=== PATIENT | male | born 1955 | race Caucasian/White ===

== ENCOUNTER 2018-09-11 09:37 | Emergency (ER) | payer BC, OTHER ==
[2018-09-11] MEDS ORDERED: Nitrostat 0.4 MG (ED) SL ONE ×2 (09:58→10:11)
[2018-09-11] MEDS ORDERED: NITRO-BID 2% UD PACKETS TOP ONE (09:58)
[2018-09-11] MEDS ORDERED: Sodium Chloride 0.9% 1000 ML 1,000 ML IV SCH (10:00)
--- NOTE | 2018-09-11 10:05 | ERPHSYRPT ---
- History of Present Illness Time Seen by Provider: 09/11/18 09:50 Historian: patient Exam Limitations: clinical condition Patient Subjective Stated Complaint: pt reports chest pain starting at 0830, states tightness to the center of the chest that radiates to the left arm. reports at that time he felt short of breath and sweaty at that time. pt reports history of heart valve problems. pt reports medication did alleviate some of his pain. Triage Nursing Assessment: pt is aox3, pupils perrl, pt appears in no apparent distress, resps easy and non labored, lung sounds are clear, radial pulses strong and equal, pt is tachy at a rate of 100, cap refill <3 seconds, pt skin pink warm dry. Physician History: PATIENT WITH A HISTORY OF VALVULAR HEART DISEASE COMPLAINS OF ACUTE ONSET OF CHEST PAIN UPON EXERTION ASSOCIATED WITH DYSPNEA AND DIAPHORESIS. STATES PAIN RADIATES TO HIS LEFT ARM, PAIN SCALE 8/10, HE TOOK ASPIRIN BABY ASPIRIN X 4 AND NITROGLYCERIN 0.4MG WITH MINIMAL IMPROVEMENT IN DISCOMFORT. Timing/Duration: today Activities at Onset: activity Quality: tightness Location: substernal Chest Pain Radiation: arm Severity of Pain-Max: moderate Modifying Factors: Improves With: exertion Associated Symptoms: shortness of breath, diaphoresis Prior Chest Pain/Cardiac Workup: cardiac cath Nitro Today/Relief: 0.4 mg x 1, provided at home Aspirin Treatment Today: 81 mg x 4, provided at home Allergies/Adverse Reactions: Sulfa (Sulfonamide Antibiotics) Allergy (Verified 09/11/18 09:57) Home Medications: Avodart 07/05/12 [History] Lexapro 07/05/12 [History] Lortab 7.5-500 Tablet PRN 07/05/12 [History] Lotrel 10-20 mg Capsule 07/05/12 [History] Zocor 07/05/12 [History] Hx Tetanus, Diphtheria Vaccination/Date Given: Yes Hx Influenza Vaccination/Date Given: No Hx Pneumococcal Vaccination/Date Given: No Immunizations Up to Date: Yes - Review of Systems Constitutional: No Fever, No Chills Eyes: No Symptoms Ears, Nose, & Throat: No Symptoms Respiratory: Dyspnea on Exertion (GILLIAM) Cardiac: Chest Pain Abdominal/Gastrointestinal: No Symptoms Genitourinary Symptoms: No Symptoms Musculoskeletal: No Symptoms Skin: No Symptoms Neurological: No Symptoms Psychological: No Symptoms Endocrine: No Symptoms Hematologic/Lymphatic: No Symptoms - Past Medical History Pertinent Past Medical History: Yes Cardiac History: High Cholesterol, Hypertension Psycho-Social History: Depression Other Medical History: heart valve - Past Surgical History Past Surgical History: Yes Gastrointestinal: Appendectomy Other Surgical History: BACK - Social History Smoking Status: Never smoker Exposure to second hand smoke: No Drug Use: none Patient Lives Alone: No - Nursing Vital Signs Nursing Vital Signs: Initial Vital Signs Temperature 98.6 F 09/11/18 09:40 Pulse Rate 100 H 09/11/18 09:40 Respiratory Rate 20 09/11/18 09:40 Blood Pressure 114/79 09/11/18 09:40 O2 Sat by Pulse Oximetry 97 09/11/18 09:40 Pain Scale Pain Intensity 2 - Physical Exam General Appearance: no apparent distress, alert Eye Exam: PERRL/EOMI, eyes nml inspection Ears, Nose, Throat Exam: normal ENT inspection, moist mucous membranes Neck Exam: normal inspection, non-tender, supple, full range of motion Respiratory Exam: normal breath sounds, lungs clear, No respiratory distress Cardiovascular Exam: regular rate/rhythm, normal heart sounds, murmur (GRADE 3/ 6 SYSTOLIC ), tachycardia Gastrointestinal/Abdomen Exam: soft, No tenderness, No mass Back Exam: normal inspection, No CVA tenderness, No vertebral tenderness Extremity Exam: normal inspection, normal range of motion Neurologic Exam: alert, oriented x 3, cooperative, normal mood/affect, sensation nml, No motor deficits Skin Exam: normal color, warm, dry SpO2 Interpretation: normal, borderline oxygenation SpO2: 97 O2 Delivery: Room Air - Radiology Exams Chest X-ray Interpretation: Discussed w/ radiologist, Negative, No Infiltrates Ordered Tests: Active Orders 24 hr Category Date Time Status Masonry Contractor Administrator STAT Care 09/11/18 09:59 Active EKG-ER Only STAT Care 09/11/18 09:58 Active Oxygen-ED Only Nasal Cannula 2 lpm Care 09/11/18 09:58 Active Pulse Oximetry (ED) STAT Care 09/11/18 09:59 Active CHEST 1 VIEW (PORTABLE) Stat Exams 09/11/18 09:58 Completed CBC W DIFF Stat Lab 09/11/18 10:15 Completed CMP Routine Lab 09/11/18 10:15 Completed D-DIMER QUANTITATION Stat Lab 09/11/18 10:15 Completed MAGNESIUM Routine Lab 09/11/18 10:15 Completed NT PRO BNP Routine Lab 09/11/18 10:15 Completed PROTIME WITH INR Stat Lab 09/11/18 10:15 Completed TROPONIN Q3H Lab 09/11/18 10:15 Completed TROPONIN Q3H Lab 09/11/18 13:45 Completed TROPONIN Q3H Lab 09/11/18 16:00 Ordered TROPONIN Q3H Lab 09/11/18 19:00 Ordered TROPONIN Q3H Lab 09/11/18 22:00 Ordered EKG STAT RT 09/11/18 14:35 Active Medication Summary Generic Name Dose Route Start Last Admin Trade Name Freq PRN Reason Stop Dose Admin Sodium Chloride 1,000 mls @ 100 mls/hr 09/11/18 10:00 09/11/18 10:14 Sodium Chloride 0.9% 1000 Ml IV 10/11/18 09:59 100 mls/hr .Q10H WILLIAM Administration Nitroglycerin/Dextrose 250 mls @ 1.5 mls/hr 09/11/18 11:16 09/11/18 11:30 Ntg 0.2mg/Ml In D5w Glass IV 10/11/18 11:15 5 mcg/min .Q24H PRN 1.5 mls/hr CHEST PAIN Administration Protocol 5 MCG/MIN Discontinued Medications Generic Name Dose Route Start Last Admin Trade Name Freq PRN Reason Stop Dose Admin Enoxaparin Sodium 80 mg 09/11/18 10:55 09/11/18 11:04 Enoxaparin Sodium SQ 09/11/18 10:56 80 mg STAT ONE Administration Enoxaparin Sodium Confirm 09/11/18 10:58 Enoxaparin Sodium Administered 09/11/18 10:59 Dose 80 mg SQ .STK-MED ONE Morphine Sulfate 4 mg 09/11/18 10:58 09/11/18 11:03 Morphine Sulfate 4 Mg Inj IV 09/11/18 10:59 4 mg STAT ONE Administration Morphine Sulfate Confirm 09/11/18 10:58 Morphine Sulfate 4 Mg Inj Administered 09/11/18 10:59 Dose 4 mg .ROUTE .STK-MED ONE Nitroglycerin 0.4 mg 09/11/18 09:58 09/11/18 10:13 Nitrostat 0.4 Mg (Ed) SL 09/11/18 09:59 0.4 mg STAT ONE Administration Nitroglycerin 1 gm 09/11/18 09:58 09/11/18 10:13 Nitro-Bid 2% Ud Packets TOP 09/11/18 09:59 1 gm STAT ONE Administration Nitroglycerin Confirm 09/11/18 10:11 Nitro-Bid 2% Ud Packets Administered 09/11/18 10:12 Dose 1 gm .ROUTE .STK-MED ONE Nitroglycerin Confirm 09/11/18 10:11 Nitrostat 0.4 Mg (Ed) Administered 09/11/18 10:12 Dose 0.4 mg SL .STK-MED ONE Lab/Rad Data: Laboratory Result Diagrams 09/11/18 10:15 09/11/18 10:15 Laboratory Results 09/11/18 09/11/18 09/11/18 Range/Units 13:45 10:15 10:15 WBC (4.0-10.5) K/mm3 RBC (4.1-5.6) M/mm3 Hgb (12.5-18.0) gm/dl Hct (42-50) % MCV (78-100) fl MCH (26-32) pg MCHC (32-36) g/dl RDW (11.5-14.0) % Plt Count (150-450) K/mm3 MPV (6-9.5) fl Gran % (36.0-66.0) % Eos # (Auto) (0-0.5) Absolute Lymphs (auto) (1.0-4.6) Absolute Monos (auto) (0.0-1.3) Lymphocytes % (24.0-44.0) % Monocytes % (0.0-12.0) % Eosinophils % (0.00-5.0) % Basophils % (0.0-0.4) % Absolute Granulocytes (1.4-6.9) Basophils # (0-0.4) PT 12.7 (8.83-12.87) SECONDS INR 1.09 (0.8-3.0) D-Dimer 553 H* (215-500) ng/mL Sodium 140 (137-145) mmol/L Potassium 4.2 (3.5-5.1) mmol/L Chloride 103 (98-107) mmol/L Carbon Dioxide 27 (22-30) mmol/L Anion Gap 14.4 (5-15) MEQ/L BUN 17 (9-20) mg/dL Creatinine 0.87 (0.66-1.25) mg/dL Estimated GFR > 60.0 ML/MIN Glucose 121 H (74-106) mg/dL Calcium 9.1 (8.4-10.2) mg/dL Magnesium 1.9 (1.6-2.3) mg/dL Total Bilirubin 0.40 (0.2-1.3) mg/dL AST 26 (17-59) U/L ALT 44 (0-50) U/L Alkaline Phosphatase 117 (38-126) U/L Troponin I 0.409 H* 0.085 H* (0.000-0.034) ng/mL NT-Pro-B Natriuret Pep 333 (0-900) pg/mL Serum Total Protein 7.4 (6.3-8.2) g/dL Albumin 4.4 (3.5-5.0) g/dL 09/11/18 Range/Units 10:15 WBC 7.7 (4.0-10.5) K/mm3 RBC 4.80 (4.1-5.6) M/mm3 Hgb 14.7 (12.5-18.0) gm/dl Hct 44.0 (42-50) % MCV 91.7 (78-100) fl MCH 30.6 (26-32) pg MCHC 33.4 (32-36) g/dl RDW 13.3 (11.5-14.0) % Plt Count 215 (150-450) K/mm3 MPV 10.3 H (6-9.5) fl Gran % 78.9 H (36.0-66.0) % Eos # (Auto) 0.09 (0-0.5) Absolute Lymphs (auto) 1.00 (1.0-4.6) Absolute Monos (auto) 0.50 (0.0-1.3) Lymphocytes % 13.0 L (24.0-44.0) % Monocytes % 6.5 (0.0-12.0) % Eosinophils % 1.2 (0.00-5.0) % Basophils % 0.4 (0.0-0.4) % Absolute Granulocytes 6.07 (1.4-6.9) Basophils # 0.03 (0-0.4) PT (8.83-12.87) SECONDS INR (0.8-3.0) D-Dimer (215-500) ng/mL Sodium (137-145) mmol/L Potassium (3.5-5.1) mmol/L Chloride (98-107) mmol/L Carbon Dioxide (22-30) mmol/L Anion Gap (5-15) MEQ/L BUN (9-20) mg/dL Creatinine (0.66-1.25) mg/dL Estimated GFR ML/MIN Glucose (74-106) mg/dL Calcium (8.4-10.2) mg/dL Magnesium (1.6-2.3) mg/dL Total Bilirubin (0.2-1.3) mg/dL AST (17-59) U/L ALT (0-50) U/L Alkaline Phosphatase (38-126) U/L Troponin I (0.000-0.034) ng/mL NT-Pro-B Natriuret Pep (0-900) pg/mL Serum Total Protein (6.3-8.2) g/dL Albumin (3.5-5.0) g/dL - Progress Progress Note: 09/11/18 11:02 ADMINISTEREDIV NORMAL SALINE 100ML/HR, NTG 0.4MG SL, NITROPASTE 1" ACW, LOVENOX 80MG SUBQ, MORPHINE 4MG IV 09/11/18 15:16, DISCONTNUE NITROPASTE AND TITRATED NITROGLYCERIN INFUSION 5- 10MCG/MIN Discussed with Dr.: Other (DISCUSSED WITH TORREY SHANKS WATER OPERATOR AT [facility] AT 1500 ACCEPTS TRANSFER TO THERE EMERGENCY ROOM) - Departure Time of Disposition: 15:50 Departure Disposition: Transfer Clinical Impression: ACUTE CHEST PAIN, ELEVATED TROPONIN Condition: Stable Critical Care Time: Yes Critical Care Time(excluding separately billable procedures): ___ minutes (60) Referrals: MACARIO CALHOUN [Primary Care Provider] -
[2018-09-11] MEDS ORDERED: Sodium Chloride 0.9% 1000 ML 1,000 ML ONE (10:11)
[2018-09-11] MEDS ORDERED: NITRO-BID 2% UD PACKETS ONE (10:11)
--- NOTE | 2018-09-11 10:13 | XRAY ---
Indication: Chest pain. Comparison: May 05, 2013. Portable apical lordotic chest again demonstrates normal heart and lungs. Bony thorax intact again with mild degenerative changes. No new/acute findings.
[2018-09-11 10:46] LABS: BASOPHIL % 0.4 % (0.0-0.4); Basophil (Absolute #) 0.03 (0-0.4); Eosinophil % 1.2 % (0.00-5.0); Eosinophil (Absolute #) 0.09 (0-0.5); Granulocyte Absolute (ANC) 6.07 (1.4-6.9); Granulocytes % 78.9 % (36.0-66.0); Hemoglobin 14.7 gm/dl (12.5-18.0); Mean Cell Volume 91.7 fl (78-100); Mean Corpuscular Hemoglobin 30.6 pg (26-32); Mean Corpuscular Hgb Concent. 33.4 g/dl (32-36); Mean Platelet Volume 10.3 fl (6-9.5); Monocytes % 6.5 % (0.0-12.0); Platelet Count 215 K/mm3 (150-450); Red Cell Distribution Width 13.3 % (11.5-14.0); White Blood Count 7.7 K/mm3 (4.0-10.5)
[2018-09-11 10:50] LABS: ALBUMIN 4.4 g/dL (3.5-5.0); ALKALINE PHOSPHATASE 117 U/L (38-126); ANION GAP 14.4 MEQ/L (5-15); BLOOD UREA NITROGEN 17 mg/dL (9-20); CHLORIDE 103 mmol/L (98-107); Calcium 9.1 mg/dL (8.4-10.2); Carbon Dioxide 27 mmol/L (22-30); Creatinine 1 0.87 mg/dL (0.66-1.25); Glucose 121 mg/dL (74-106); MAGNESIUM 1.9 mg/dL (1.6-2.3); NT PRO BNP 333 pg/mL (0-900); Potassium 4.2 mmol/L (3.5-5.1); SGOT/AST 26 U/L (17-59); SGPT/ALT 44 U/L (0-50); SODIUM 140 mmol/L (137-145); Total Protein 7.4 g/dL (6.3-8.2)
[2018-09-11 10:51] LABS: INR 1.09 (0.8-3.0); PROTIME 12.7 SECONDS (8.83-12.87)
[2018-09-11 10:53] LABS: TROPONIN 0.085 ng/mL (0.000-0.034)
[2018-09-11] MEDS ORDERED: ENOXAPARIN SODIUM SQ ONE ×2 (10:55→10:58)
[2018-09-11] MEDS ORDERED: MORPHINE SULFATE 4 MG INJ IV ONE (10:58)
[2018-09-11] MEDS ORDERED: MORPHINE SULFATE 4 MG INJ ONE (10:58)
[2018-09-11] MEDS ORDERED: Ntg 0.2MG/Ml in D5W GLASS*** 250 ML IV PRN (11:16)
[2018-09-11] MEDS ORDERED: Ntg 0.2MG/Ml in D5W GLASS*** 250 ML IV ONE (11:18)
[2018-09-11 12:57] VITALS: O2SAT 97
[2018-09-11 15:59] VITALS: BP 131/76; PULSE 88
== END 2018-09-11 15:56 | disposition short-term general hospital (02) ==
LOC: ED 09:37
DX: R07.89 Other chest pain (principal); R74.8 Abnormal levels of other serum enzymes; I10 Essential (primary) hypertension; E78.00 Pure hypercholesterolemia, unspecified
CPT/HCPCS: 36000; 36415; 71045; 80053; 83735; 83880; 84484; 85025; 85379; 85610; 93005; 93041; 96360; 96361; 96372; 96374; 99285; J1650; J2270; A9270-GY

== ENCOUNTER 2018-09-26 17:57 | Emergency (ER) | payer OTHER ==
[2018-09-26 19:03] LABS: Granulocyte Absolute (ANC) 7.58 (1.4-6.9); Hematocrit 36.4 % (42-50); Hemoglobin 11.9 gm/dl (12.5-18.0); Mean Cell Volume 94.1 fl (78-100); Mean Corpuscular Hemoglobin 30.7 pg (26-32); Mean Corpuscular Hgb Concent. 32.7 g/dl (32-36); Mean Platelet Volume 9.6 fl (6-9.5); Platelet Count 331 K/mm3 (150-450); Red Blood Count 3.87 M/mm3 (4.1-5.6); Red Cell Distribution Width 13.3 % (11.5-14.0); White Blood Count 10.3 K/mm3 (4.0-10.5)
[2018-09-26] MEDS ORDERED: Zofran 4 MG/2 ML VIAL ONE (19:06)
[2018-09-26] MEDS ORDERED: MORPHINE SULFATE 4 MG INJ ONE (19:06)
--- NOTE | 2018-09-26 19:06 | ERPHSYRPT ---
- History of Present Illness Time Seen by Provider: 09/26/18 18:10 Historian: patient Exam Limitations: clinical condition Patient Subjective Stated Complaint: medial chest pain that radiates to the right chest, shoulder, back, and a little down the arm Triage Nursing Assessment: Pt arrives at the ER by EMS due to c/o of chest pain , pt is 12 days post valve replacement surgery, unsure which valve, he feels like he woke up with mild pain but didn't think much about it until it got worse later on today, vitals wnl, S1-S2 sounds heard, pulses normal, denies over exerting self, surgery done at [facility] Physician History: PATIENT WITH A HISTORY OF HYPERTENSION, 12 DAYS POSTOPERATIVE CARDIAC VALVE REPLACEMENT AT [facility], COMPLAINS OF ACUTE ONSET OF CHEST PAIN, PRESSURE DISCOMFORT AT 2PM TODAY, CONSTANT, PAIN SCALE 6/10. HAS RADIATION OF PAIN TO HIS BACK, TOOK 4 BABY ASPIRIN AT HOME TODAY. RECEIVED NITROGLYCERIN 0.4MG SUBLINGUAL X 2 DAYS WITH EMS ENROUTE TO EMERGENCY ROOM. DENIES DYSPNEA, DIAPHORESIS AND PALPITATIONS. Timing/Duration: today Activities at Onset: none Quality: pressure Location: substernal Chest Pain Radiation: back Severity of Pain-Max: moderate Modifying Factors: Improves With: nothing Associated Symptoms: shortness of breath Prior Chest Pain/Cardiac Workup: recent hospitalization (CARDIAC VALVE REPLACEMENT 12 DAYS AGO) Nitro Today/Relief: 0.4 mg x 2, provided by EMS Aspirin Treatment Today: no aspirin today, 81 mg x 4, provided at home Allergies/Adverse Reactions: Sulfa (Sulfonamide Antibiotics) Allergy (Verified 09/26/18 18:15) Home Medications: Alprazolam 0.5 mg [xanAX 0.5 MG] 0.5 - 1 tab PO BID 09/26/18 [History] Dutasteride 1 cap PO DAILY 09/26/18 [History] Escitalopram Oxalate 10 mg [Lexapro 10 MG] 10 mg PO DAILY 09/26/18 [History] Metoprolol Tartrate 25 mg [Lopressor 25MG Tab] 25 mg PO BID 09/26/18 [ History] Simvastatin 20Mg [Zocor 20Mg] 40 mg PO DAILY 09/26/18 [History] Hx Tetanus, Diphtheria Vaccination/Date Given: Yes Hx Influenza Vaccination/Date Given: No Hx Pneumococcal Vaccination/Date Given: No - Review of Systems Constitutional: No Fever, No Chills Eyes: No Symptoms Ears, Nose, & Throat: No Symptoms Respiratory: No Symptoms, No Cough, No Dyspnea Cardiac: No Symptoms, Chest Pain, No Edema, No Syncope Abdominal/Gastrointestinal: No Symptoms, No Abdominal Pain, No Nausea, No Vomiting, No Diarrhea Genitourinary Symptoms: No Symptoms, No Dysuria Musculoskeletal: No Symptoms, No Back Pain, No Neck Pain Skin: No Symptoms, No Rash Neurological: No Dizziness, No Focal Weakness, No Sensory Changes Psychological: No Symptoms Endocrine: No Symptoms All Other Systems: Reviewed and Negative - Past Medical History Pertinent Past Medical History: Yes Cardiac History: High Cholesterol, Hypertension Psycho-Social History: Depression Other Medical History: heart valve - Past Surgical History Past Surgical History: Yes Cardiac: Valve Replacement Gastrointestinal: Appendectomy Other Surgical History: BACK - Social History Smoking Status: Never smoker Exposure to second hand smoke: No Drug Use: none Patient Lives Alone: No - Nursing Vital Signs Nursing Vital Signs: Initial Vital Signs Temperature 99.5 F 09/26/18 17:58 Pulse Rate 83 09/26/18 17:58 Respiratory Rate 21 09/26/18 17:58 Blood Pressure 137/76 09/26/18 17:58 O2 Sat by Pulse Oximetry 93 L 09/26/18 17:58 Pain Scale Pain Intensity 5 - Physical Exam General Appearance: no apparent distress, alert Eye Exam: PERRL/EOMI, eyes nml inspection Ears, Nose, Throat Exam: normal ENT inspection, moist mucous membranes Neck Exam: normal inspection, non-tender, supple, full range of motion Respiratory Exam: normal breath sounds, lungs clear, No respiratory distress Cardiovascular Exam: regular rate/rhythm, normal heart sounds, other (WELL HEALED PROXIMAL STERNAL INCISIONAL WOUND,EDGES APPROXIMATED, NO ERYTHEMA OF EDGES) Gastrointestinal/Abdomen Exam: soft, normal bowel sounds, No tenderness, No mass Back Exam: normal inspection, No CVA tenderness, No vertebral tenderness Extremity Exam: normal inspection, normal range of motion Neurologic Exam: alert, oriented x 3, cooperative, normal mood/affect, sensation nml, No motor deficits Skin Exam: normal color, warm, dry SpO2 Interpretation: borderline oxygenation SpO2: 93 O2 Delivery: Room Air - Course EKG Interpreted by Me: RATE, NORMAL AXIS, Non-specific ST Changes (RATE 82) - Radiology Exams Chest X-ray Interpretation: Interpreted by me (MILD CARDIOMEGALY, ELEVATION RIGHT HEMIDIAPHRAM, PREVIOUS STERNOTOMY, NO EVIDENCE OF INFILTRATES OR CONGESTIVE HEART FAILURE) - CT Exams Chest CT Interpretation: Discussed w/radiologist (NEGATIVE FOR PULMONARY EMBOLISM, CARDIOMEGALY, AORTIC VALVE REPLACEMENT, BILATERAL DEPENDENT ATELECTASIS, REMAINING CHEST NEGATIVE) Ordered Tests: Active Orders 24 hr Category Date Time Status Hand Compositor STAT Care 09/26/18 18:17 Active EKG-ER Only STAT Care 09/26/18 18:16 Active EKG-ER Only STAT Care 09/26/18 20:07 Active IV Insertion STAT Care 09/26/18 18:17 Active IV Insertion-2nd Peripheral STAT Care 09/26/18 18:17 Active Oxygen-ED Only Nasal Cannula 2 lpm Care 09/26/18 18:47 Active CHEST 1 VIEW (PORTABLE) Stat Exams 09/26/18 18:47 Taken CHEST WITH CONTRAST [CT] Stat Exams 09/26/18 19:36 Taken CBC W DIFF Stat Lab 09/26/18 18:56 Completed CMP Stat Lab 09/26/18 18:56 Completed D-DIMER QUANTITATION Stat Lab 09/26/18 18:56 Completed MAGNESIUM Stat Lab 09/26/18 18:56 Completed Manual Differential NC Stat Lab 09/26/18 18:56 Completed NT PRO BNP Stat Lab 09/26/18 18:56 Completed PROTIME WITH INR Stat Lab 09/26/18 18:56 Completed TROPONIN Q3H Lab 09/26/18 18:56 Completed TROPONIN Q3H Lab 09/26/18 22:28 Completed TROPONIN Q3H Lab 09/27/18 01:00 Ordered TROPONIN Q3H Lab 09/27/18 04:00 Ordered TROPONIN Q3H Lab 09/27/18 07:00 Ordered Medication Summary Generic Name Dose Route Start Last Admin Trade Name Freq PRN Reason Stop Dose Admin Sodium Chloride 1,000 mls @ 50 mls/hr 09/26/18 19:00 09/26/18 19:13 Sodium Chloride 0.9% 1000 Ml IV 10/26/18 18:59 50 mls/hr .Q20H WILLIAM Administration Nitroglycerin/Dextrose 250 mls @ 1.5 mls/hr 09/26/18 20:05 09/26/18 22:35 Ntg 0.2mg/Ml In D5w Glass IV 10/26/18 20:04 0 mcg/min .Q24H PRN 0 mls/hr CHEST PAIN Titration Protocol 5 MCG/MIN Discontinued Medications Generic Name Dose Route Start Last Admin Trade Name Won PRN Reason Stop Dose Admin Morphine Sulfate 4 mg 09/26/18 18:47 09/26/18 19:14 Morphine Sulfate 4 Mg Inj IV 09/26/18 18:48 4 mg STAT ONE Administration Morphine Sulfate Confirm 09/26/18 19:06 Morphine Sulfate 4 Mg Inj Administered 09/26/18 19:07 Dose 4 mg .ROUTE .STK-MED ONE Morphine Sulfate 6 mg 09/26/18 21:10 09/26/18 21:18 Morphine Sulfate 10 Mg/Ml IV 09/26/18 21:11 6 mg STAT ONE Administration Morphine Sulfate Confirm 09/26/18 21:12 Morphine Sulfate 10 Mg/Ml Administered 09/26/18 21:13 Dose 10 mg .ROUTE .STK-MED ONE Ondansetron HCl 4 mg 09/26/18 18:57 09/26/18 19:13 Zofran 4 Mg/2 Ml Vial IV 09/26/18 18:58 4 mg STAT ONE Administration Ondansetron HCl Confirm 09/26/18 19:06 Zofran 4 Mg/2 Ml Vial Administered 09/26/18 19:07 Dose 4 mg .ROUTE .STK-MED ONE Lab/Rad Data: Laboratory Result Diagrams 09/26/18 18:56 09/26/18 18:56 Laboratory Results 09/26/18 09/26/18 09/26/18 Range/Units 22:28 18:56 18:56 WBC (4.0-10.5) K/mm3 RBC (4.1-5.6) M/mm3 Hgb (12.5-18.0) gm/dl Hct (42-50) % MCV (78-100) fl MCH (26-32) pg MCHC (32-36) g/dl RDW (11.5-14.0) % Plt Count (150-450) K/mm3 MPV (6-9.5) fl Absolute Granulocytes (1.4-6.9) Segmented Neutrophils (36.-66.) % Lymphocytes (Manual) (24-44) % Monocytes (Manual) (0.0-12.0) % Eosinophils (Manual) (0.00-3.0) % Basophils (Manual) (0.0-1.0) % Atypical Lymphocytes % Hypochromia Platelet Estimate (NORMAL) RBC Morphology Polychromasia PT 12.9 H (8.83-12.87) SECONDS INR 1.11 (0.8-3.0) D-Dimer 3592 H* (215-500) ng/mL Sodium (137-145) mmol/L Potassium (3.5-5.1) mmol/L Chloride (98-107) mmol/L Carbon Dioxide (22-30) mmol/L Anion Gap (5-15) MEQ/L BUN (9-20) mg/dL Creatinine (0.66-1.25) mg/dL Estimated GFR ML/MIN Glucose (74-106) mg/dL Calcium (8.4-10.2) mg/dL Magnesium (1.6-2.3) mg/dL Total Bilirubin (0.2-1.3) mg/dL AST (17-59) U/L ALT (0-50) U/L Alkaline Phosphatase (38-126) U/L Troponin I 0.037 H* 0.035 H (0.000-0.034) ng/mL NT-Pro-B Natriuret Pep (0-900) pg/mL Serum Total Protein (6.3-8.2) g/dL Albumin (3.5-5.0) g/dL 09/26/18 09/26/18 Range/Units 18:56 18:56 WBC 10.3 (4.0-10.5) K/mm3 RBC 3.87 L (4.1-5.6) M/mm3 Hgb 11.9 L (12.5-18.0) gm/dl Hct 36.4 L (42-50) % MCV 94.1 (78-100) fl MCH 30.7 (26-32) pg MCHC 32.7 (32-36) g/dl RDW 13.3 (11.5-14.0) % Plt Count 331 (150-450) K/mm3 MPV 9.6 H (6-9.5) fl Absolute Granulocytes 7.58 H (1.4-6.9) Segmented Neutrophils 72 H (36.-66.) % Lymphocytes (Manual) 12 L (24-44) % Monocytes (Manual) 6 (0.0-12.0) % Eosinophils (Manual) 3 (0.00-3.0) % Basophils (Manual) 1 (0.0-1.0) % Atypical Lymphocytes 6 % Hypochromia 1+ Platelet Estimate NORMAL (NORMAL) RBC Morphology ABNORMAL Polychromasia 1+ PT (8.83-12.87) SECONDS INR (0.8-3.0) D-Dimer (215-500) ng/mL Sodium 141 (137-145) mmol/L Potassium 4.2 (3.5-5.1) mmol/L Chloride 105 (98-107) mmol/L Carbon Dioxide 27 (22-30) mmol/L Anion Gap 13.1 (5-15) MEQ/L BUN 15 (9-20) mg/dL Creatinine 0.68 (0.66-1.25) mg/dL Estimated GFR > 60.0 ML/MIN Glucose 95 (74-106) mg/dL Calcium 8.8 (8.4-10.2) mg/dL Magnesium 2.0 (1.6-2.3) mg/dL Total Bilirubin 0.20 (0.2-1.3) mg/dL AST 61 H (17-59) U/L ALT 113 H (0-50) U/L Alkaline Phosphatase 185 H (38-126) U/L Troponin I (0.000-0.034) ng/mL NT-Pro-B Natriuret Pep 695 (0-900) pg/mL Serum Total Protein 6.5 (6.3-8.2) g/dL Albumin 3.4 L (3.5-5.0) g/dL - Progress Progress: re-examined Progress Note: 09/26/18 19:09 ADMINISTERED IV NORMAL SALINE 50ML/HR, ZOFRAN 4MG AND MORPHINE 4MG, APPLICATION NITROPASTE 1" ANTERIOR CHEST WALL. 09/26/18 22:59, PLACED ON INTRAVENOUS NITROGLYCERIN WITH MINIMAL CHANGE IN CHEST PAIN, IMPROVEMENT WITH IV MORPHINE 6MG. DISCUSSED WITH CARDIOVASCULAR SURGEON DR VILLANUEVA AT 2220 ACCEPTS TRANSFER TO [facility]IA [facility]. DR VILLANUEVA STATES PATIENT HAS NORMAL CORONARY ARTERIES, NORMAL CARDIAC CATH PRIOR TO VALVE PLACEMENT. NITROGLYCERIN INFUSION DISCONTINUED. - Departure Departure Disposition: Transfer Clinical Impression: ACUTE CHEST PAIN Condition: Stable Critical Care Time: No Referrals: MACARIO CALHOUN [Primary Care Provider] -
[2018-09-26] MEDS ORDERED: Sodium Chloride 0.9% 1000 ML 1,000 ML ONE (19:07)
[2018-09-26] MEDS: Zofran 4 MG/2 ML VIAL IV ONE (19:13)
[2018-09-26] MEDS: Sodium Chloride 0.9% 1000 ML 1,000 ML IV SCH (19:13)
[2018-09-26 19:14] LABS: INR 1.11 (0.8-3.0); PROTIME 12.9 SECONDS (8.83-12.87)
[2018-09-26] MEDS: MORPHINE SULFATE 4 MG INJ IV ONE (19:14)
[2018-09-26 19:25] LABS: ALBUMIN 3.4 g/dL (3.5-5.0); ALKALINE PHOSPHATASE 185 U/L (38-126); ANION GAP 13.1 MEQ/L (5-15); BLOOD UREA NITROGEN 15 mg/dL (9-20); CHLORIDE 105 mmol/L (98-107); Calcium 8.8 mg/dL (8.4-10.2); Carbon Dioxide 27 mmol/L (22-30); Creatinine 1 0.68 mg/dL (0.66-1.25); Glucose 95 mg/dL (74-106); NT PRO BNP 695 pg/mL (0-900); Potassium 4.2 mmol/L (3.5-5.1); SGOT/AST 61 U/L (17-59); SGPT/ALT 113 U/L (0-50); SODIUM 141 mmol/L (137-145); Total Protein 6.5 g/dL (6.3-8.2)
[2018-09-26 21:09] LABS: ATYPICAL LYMPHS 6 %; Basophil 1 % (0.0-1.0); Eosinophil 3 % (0.00-3.0); Lymphocytes 12 % (24-44); Monocyte 6 % (0.0-12.0); Neutrophils 72 % (36.-66.); Platelet Estimate NORMAL (NORMAL); Total Cells Counted 100
[2018-09-26 21:10] LABS: Hypochromia 1+
[2018-09-26 21:12] LABS: Polychromasia 1+
[2018-09-26] MEDS ORDERED: Ntg 0.2MG/Ml in D5W GLASS*** 250 ML IV ONE (21:12)
[2018-09-26] MEDS ORDERED: MORPHINE SULFATE 10 MG/ML ONE (21:12)
[2018-09-26] MEDS: MORPHINE SULFATE 10 MG/ML IV ONE (21:18)
[2018-09-26] MEDS: Ntg 0.2MG/Ml in D5W GLASS*** 250 ML IV PRN (21:19)
[2018-09-26 23:43] VITALS: BP 126/75; PULSE 74
[2018-09-26 23:59] VITALS: O2SAT 93
--- NOTE | 2018-09-27 08:36 | XRAY ---
Indication: Chest pain. Status post heart valve replacement surgery. Comparison: September 11, 2018. Portable chest demonstrates interval cardiac valve replacement surgery with now borderline cardiomegaly. Lungs remain clear. Bony thorax intact again with mild degenerative changes. Impression: Status post cardiac valve replacement surgery with now borderline cardiomegaly. Negative acute pneumonic process or CHF.
--- NOTE | 2018-09-27 08:38 | XRAY ---
Indication: Chest pain and short of breath. Elevated d-dimer. Status post cardiac valve replacement surgery. Multiple contiguous axial images obtained through the chest using 80 cc Isovue 300 contrast and PE protocol. Comparison: None There is good opacification of the pulmonary arteries to include the lobar and segmental branches. No filling defect or pulmonary embolus. Heart is enlarged with aortic valve replacement. No pericardial effusion. Aorta is negative for aneurysm/dissection. No pathologic mediastinal/hilar lymphadenopathy. Examination of the lung parenchyma demonstrates moderate bilateral dependent atelectasis and mild bibasilar fibrosis/scarring. No suspicious pulmonary mass, infiltrate, or effusion. Bony thorax intact with mild degenerative changes throughout the spine and sternotomy wires. Limited upper abdomen demonstrates moderate colonic fecal debris. Impression: 1. Negative pulmonary embolus. 2. Status post aortic valve replacement surgery with cardiomegaly, bilateral dependent atelectasis, and bibasilar fibrosis/scarring. No acute cardiopulmonary abnormalities. CT DI 21.65
== END 2018-09-26 23:55 | disposition short-term general hospital (02) ==
LOC: ED 17:57
DX: R07.9 Chest pain, unspecified (principal); I10 Essential (primary) hypertension; E78.00 Pure hypercholesterolemia, unspecified; Z95.2 Presence of prosthetic heart valve
CPT/HCPCS: 36000; 36415; 71045; 71260; 80053; 83735; 83880; 84484; 85025; 85379; 85610; 93005; 93041; 96360; 96361; 96365; 96374; 96375; 96376; 99285; J2270; J2405

== ENCOUNTER 2022-03-01 16:52 | Emergency (ER) | payer OTHER ==
--- NOTE | 2022-03-01 16:57 | ERPHSYRPT ---
- History of Present Illness Time Seen by Provider: 03/01/22 16:57 Source: patient Exam Limitations: no limitations Physician History: This is a 66-year-old white male who has postsurgical orthopedic hardware in his pelvis status post pelvic fracture repair and presents with worsening left lower extremity swelling and pain today. Patient has been out of his pain medication for few days but the pain worsened today. He has not fallen. Patient had a negative venous Doppler study of the left lower extremity 2 weeks ago. This prompted the orthopedic surgeon to stop his Xarelto 2 days ago. Patient has no chest pain. He has no shortness of breath. Method of Injury: other (No new injury) Occurred: this morning Quality: aching, throbbing Severity of Pain-Max: moderate Severity of Pain-Current: mild (To moderate) Lower Extremities Pain: leg: left (Entire left lower extremity), other: left (Left lower extremity with increased swelling compared to right lower extremity) Modifying Factors: Improves With: nothing Associated Symptoms: other (Patient is currently using a wheelchair.) Allergies/Adverse Reactions: Sulfa (Sulfonamide Antibiotics) Allergy (Verified 03/01/22 17:10) Home Medications: ALPRAZolam 0.5 MG [xanAX 0.5 MG] 0.5 - 1 tab PO BID 09/26/18 [History] Dutasteride 1 cap PO DAILY 09/26/18 [History] Escitalopram Oxalate [Lexapro 10 MG] 10 mg PO DAILY 09/26/18 [History] Metoprolol Tartrate 25 mg [Lopressor 25MG Tab] 25 mg PO BID 09/26/18 [History] Simvastatin 20Mg [Zocor 20Mg] 40 mg PO DAILY 09/26/18 [History] Hx Tetanus, Diphtheria Vaccination/Date Given: Yes Hx Influenza Vaccination/Date Given: No Hx Pneumococcal Vaccination/Date Given: No Travel Risk - International Travel Have you traveled outside of the country in past 3 weeks: No - Coronavirus Screening Are you exhibiting any of the following symptoms?: No Close contact with a COVID-19 positive Pt in past 14-21 Days: No - Review of Systems Constitutional: No Symptoms Eyes: No Symptoms Ears, Nose, & Throat: No Symptoms Respiratory: No Symptoms Cardiac: No Symptoms Abdominal/Gastrointestinal: No Symptoms Genitourinary Symptoms: No Symptoms Musculoskeletal: Other (Left lower extremity pain and swelling) Skin: No Symptoms Neurological: No Symptoms Psychological: No Symptoms Endocrine: No Symptoms Hematologic/Lymphatic: No Symptoms Immunological/Allergic: No Symptoms All Other Systems: Reviewed and Negative - Past Medical History Pertinent Past Medical History: Yes Cardiac History: High Cholesterol, Hypertension Psycho-Social History: Depression Other Medical History: heart valve - Past Surgical History Past Surgical History: Yes Cardiac: Valve Replacement Gastrointestinal: Appendectomy Other Surgical History: BACK - Social History Smoking Status: Never smoker Exposure to second hand smoke: No Drug Use: none Patient Lives Alone: No - Nursing Vital Signs Nursing Vital Signs: Initial Vital Signs Temperature 98 F 03/01/22 17:11 Pulse Rate 83 03/01/22 17:11 Respiratory Rate 17 03/01/22 17:11 Blood Pressure 156/80 03/01/22 17:11 O2 Sat by Pulse Oximetry 97 03/01/22 17:11 Pain Scale Pain Intensity 10 - Physical Exam General Appearance: no apparent distress, alert, anxiety Eyes, Ears, Nose, Throat Exam: normal ENT inspection, moist mucous membranes Neck Exam: normal inspection, non-tender, supple, full range of motion Cardiovascular/Respiratory Exam: chest non-tender, no respiratory distress Gastrointestinal/Abdominal Exam: non-tender Back Exam: normal inspection, normal range of motion, No CVA tenderness, No vertebral tenderness Hips Exam: right: non-tender, left: swelling (Left lower extremity), bilateral: other (The pelvis has orthopedic surgical hardware (external fixator) in place.) Legs Exam: left leg: swelling Ankle Exam: left ankle: swelling Foot Exam: left foot: swelling Neuro/Tendon Exam: normal sensation, responds to pain, no evidence tendon injury Mental Status Exam: alert, oriented x 3 Skin Exam: normal color, warm, dry Ordered Tests: Active Orders 24 hr Category Date Time Status VENOUS UNILAT/LIMITED EXTREMIT [US] Stat Exams 03/01/22 17:26 Taken Medication Summary Discontinued Medications Generic Name Dose Route Start Last Admin Trade Name Freq PRN Reason Stop Dose Admin Hydromorphone HCl 1 mg 03/01/22 17:27 03/01/22 17:43 Hydromorphone 1 Mg/1ml Inj 1 Mg/Ml Syringe IM 03/01/22 17:28 1 mg STAT ONE Administration Hydromorphone HCl Confirm 03/01/22 17:33 Hydromorphone 1 Mg/1ml Inj 1 Mg/Ml Syringe Administered 03/01/22 17:34 Dose 1 mg .ROUTE .STK-MED ONE Prochlorperazine Edisylate 5 mg 03/01/22 17:27 03/01/22 17:36 Prochlorperazine Edisylate 10 Mg/2 Ml Vial IM 03/01/22 17:28 5 mg STAT ONE Administration Prochlorperazine Edisylate Confirm 03/01/22 17:34 Prochlorperazine Edisylate 10 Mg/2 Ml Vial Administered 03/01/22 17:35 Dose 10 mg .ROUTE .STK-MED ONE - Progress Progress: improved, pain not gone completely Progress Note: 03/01/22 17:34 Medical decision making: This patient has not fallen. There is been no acute traumatic injury. Patient is out of his pain medicine. He also stopped his Xarelto at the direction of his orthopedic surgeon. There is no evidence of infection in his left lower extremity. Patient has strong palpable pedal pulses. We will provide the patient with some injectable pain medicine since his sister brought him to the emergency department. I will also order a venous Doppler of his left lower extremity to evaluate for DVT. If there is one present we may need to restart his Xarelto. He is aware of this. 03/01/22 18:15 Venous Doppler left lower extremity negative for DVT per waste transportation technician Carlota. Counseled pt/family regarding: diagnosis, need for follow-up, rad results - Departure Departure Disposition: Home Clinical Impression: Left leg pain, Left leg swelling Condition: Stable Critical Care Time: No Referrals: MACARIO CALHOUN [Primary Care Provider] - Follow up/PCP as directed Additional Instructions: Elevate bilateral lower extremities above the level of her heart when lying flat. Take your medications as prescribed. Call your orthopedic surgeon's office tomorrow morning to have them manage your pain control acutely and chronically. Make arrangements for a follow-up appointment. Prescriptions: Oxycodone HCl/Acetaminophen [Percocet 5-325 mg Tablet] 1 each PO Q8H PRN PRN #8 tablet MDD 3 PRN Reason: Moderate To Severe Pain
[2022-03-01] MEDS ORDERED: Compazine 10 MG/2 ML IM ONE (17:27)
[2022-03-01] MEDS ORDERED: Hydromorphone 1 mg/ml Injection IM ONE (17:27)
[2022-03-01] MEDS ORDERED: Hydromorphone 1 mg/ml Injection ONE (17:33)
[2022-03-01] MEDS ORDERED: Compazine 10 MG/2 ML ONE (17:34)
[2022-03-01 18:28] VITALS: BP 153/76; PULSE 80; O2SAT 98
--- NOTE | 2022-03-01 18:45 | XRAY ---
Exam: Duplex Doppler Ultrasound of the left lower extremity. Comparison: [None.] Indication: 66-year-old male with left leg swelling; post pelvic fracture repair. Findings: The examination of the left lower extremity was carried out in the usual manner [facility] hospital sales representative sections of the common femoral vein through the popliteal vein. The posterior tibial veins were also evaluated. Normal color flow was seen throughout. Normal spontaneous and phasic flow was seen at all hospital sales representative sections. There was normal transducer compression and doppler signal augmentation at all levels. The greater saphenous vein demonstrated normal transducer compression, color blood flow, and Doppler signal within the proximal left thigh. Impression: 1. No evidence of deep venous thrombosis within the left lower extremity.
== END 2022-03-01 18:38 | disposition home or self-care (01) ==
LOC: ED 16:52
DX: M79.605 Pain in left leg (principal); R60.0 Localized edema; E78.5 Hyperlipidemia, unspecified; I10 Essential (primary) hypertension; Z79.891 Long term (current) use of opiate analgesic; Z79.899 Other long term (current) drug therapy
CPT/HCPCS: 93971; 96372; 99283; J1170